=== PATIENT | male | born 1935 | race Caucasian/White ===

== ENCOUNTER 2017-05-22 09:16 | Day surgery (SDC) | payer BC ==
[~2017-05-22] VITALS: Ht 175.3 cm; Wt 90.7 kg
[~2017-05-22 09:16] MED LIST: NIFE60TA7 PO; PROP40TA7 PO
[2017-05-22 09:23] VITALS: BP_SYST 115
--- NOTE | 2017-05-22 09:28 | NUR ---
Patient to ER bed 8 to gown for evaluation. Side rails up. Report given by Iveth FARRELL.
--- NOTE | 2017-05-22 09:29 | NUR ---
Pt complains of hernia to left groin. Pt states "noticed bulging yesterday or the day before." Per pt, has nausea but denies vomiting. Pt denies fever or diarrhea. Pt states "not much pain after I pushed it back in." No other injuries/complaints per pt or noted.
--- NOTE | 2017-05-22 10:15 | NUR ---
ER at bedside examining patient.
--- NOTE | 2017-05-22 10:55 | NUR ---
Pt went to radiology in stable condition.
[2017-05-22 11:12] LABS: BASOPHILS # (AUTO) 0.1 K/uL (0.0-0.2); BASOPHILS % (AUTO) 0.6 % (0.0-2.0); EOSINOPHILS # (AUTO) 0.6 K/uL (0.0-0.4); EOSINOPHILS % (AUTO) 4.7 % (0.0-4.0); HEMATOCRIT 36.8 % (36-54); HEMOGLOBIN 12.3 g/dL (14.0-18.0); LYMPHOCYTES # (AUTO) 3.1 K/uL (1.0-5.5); LYMPHOCYTES % (AUTO) 24.4 % (20.5-51.5); MEAN CORPUSCULAR HEMOGLOBIN 27 pg (27-31); MEAN CORPUSCULAR HGB CONC 34 % (32-36); MEAN CORPUSCULAR VOLUME 81 fL (79.0-98.0); MONOCYTES % (AUTO) 8.1 % (1.7-9.3); NEUTROPHILS % (AUTO) 62.2 % (40.0-70.0); PLATELET COUNT (AUTO) 353 K/uL (130-430); RED BLOOD CELL COUNT(AUTO) 4.53 MIL/uL (4.2-6.2); RED CELL DISTRIBUTION WIDTH 15.1 % (9.0-15.0)
--- NOTE | 2017-05-22 11:18 | NUR ---
Pt vital signs are within range. Pt resting comfortably in bed, will continue to monitor.
[2017-05-22 11:20] LABS: WHITE BLOOD COUNT (AUTO) 12.8 K/uL (4.8-10.8)
[2017-05-22 11:27] LABS: ANION GAP 8 (5-15); CALCIUM 9.3 mg/dL (8.4-11.0); CHLORIDE 103 mmol/L (98-107); GLUCOSE 124 mg/dL (70-99); POTASSIUM 4.9 mmol/L (3.5-5.1); SODIUM SERUM 139 mmol/L (136-145); UREA NITROGEN, BLOOD 21 mg/dL (8-21)
[2017-05-22 11:33] LABS: ALANINE AMINOTRANSFERASE 18 U/L (12-78); ALBUMIN 3.4 g/dL (3.4-4.8); ASPARTATE AMINOTRANSFERASE 13 U/L (10-37); LIPASE 106 U/L (73-393); TOTAL BILIRUBIN 0.6 mg/dL (0.0-1.0)
[2017-05-22] MEDS ORDERED: NIFE-2 PO (12:13)
[2017-05-22] MEDS ORDERED: NAPR-688 PO (12:13)
[2017-05-22] MEDS ORDERED: PROP60CA6 PO (12:13)
[2017-05-22] MEDS ORDERED: SIMV40TA2 PO (12:13)
--- NOTE | 2017-05-22 12:47 | NUR ---
Pt ambulated to restroom with no difficulty, will continue to monitor.
--- NOTE | 2017-05-22 13:00 | NUR ---
Dr Foster is at bedside examining pt, explaining that the pt will be having left inguinal hernia repair today, pt is accepting and understands what will be happening. Daughter is at bedside.
[2017-05-22] MEDS ORDERED: SEVOFLURANE 15 MIN GAS INH ONE (13:25)
[2017-05-22] MEDS ORDERED: fentaNYL CITRATE 250 MCG/5 ML AMP IV ONE (13:25)
[2017-05-22] MEDS ORDERED: MIDAZOLAM HCL 5 MG/5 ML VIAL IVP ONE (13:25)
[2017-05-22] MEDS ORDERED: BACITRACIN ZINC 15 GM TOPICAL OINTMENT TP ONE (13:25)
[2017-05-22] MEDS ORDERED: METOCLOPRAMIDE HCL 10 MG/2 ML VIAL IVP ONE (13:25)
[2017-05-22] MEDS ORDERED: PROPOFOL 200MG/ 20ML VIAL (DIPRIVAN) IV ONE (13:25)
[2017-05-22] MEDS ORDERED: ROCURONIUM BROMIDE 10 MG/ML (ZEMURON) IV ONE (13:25)
[2017-05-22] MEDS ORDERED: BUPIVACAINE /DEX PF 0.75% SPINAL 2 ML AMP INJ ONE (13:25)
[2017-05-22] MEDS ORDERED: GLYCOPYRROLATE 0.2 MG/ML VIAL IJ ONE (13:25)
[2017-05-22] MEDS ORDERED: DEXAMETHASONE SOD PHOSPHATE 4 MG/ML VIAL IVP ONE (13:25)
[2017-05-22] MEDS ORDERED: CEFAZOLIN 2 GM IVPB PREMIX 50 ML IV ONE (13:25)
[2017-05-22] MEDS ORDERED: LR 1,000 ML IV.SOLN IV ONE (13:25)
--- NOTE | 2017-05-22 13:35 | NUR ---
Patient will be admitted to care of Dr. Foster. Admitted to OR unit. Will go to room OR. Belongings list completed. Summary report printed. Report will be given at bedside.
[2017-05-22] MEDS ORDERED: POLYMYXIN 500,000/BACIT.10,000 UNITS in NS IRR 1 L IR ONE ×2 (13:44→15:03)
[2017-05-22] MEDS ORDERED: LR 1,000 ML IV ONE (15:16)
[2017-05-22] MEDS ORDERED: D5/0.45 NS 1,000 ML IV SCH (15:16)
[2017-05-22] MEDS ORDERED: fentaNYL CITRATE/PF 100 MCG/2 ML AMP IVP PRN (15:30)
[2017-05-22] MEDS ORDERED: DIPHENHYDRAMINE INJ 50 MG/ML VIAL IVP PRN (15:30)
[2017-05-22] MEDS ORDERED: NALOXONE HCL 0.4 MG/ML AMP (NARCAN) IVP PRN (15:30)
[2017-05-22] MEDS ORDERED: ePHEDrine sulfate 50 MG/ML VIAL IVP PRN (15:30)
[2017-05-22] MEDS ORDERED: NALBUPHINE HCL 10 MG/ML AMP IVP PRN (15:30)
[2017-05-22] MEDS ORDERED: HYDROmorphone 1 MG INJ. 1 MG/ML AMPUL IVP PRN (15:30)
[2017-05-22] MEDS ORDERED: ONDANSETRON HCL 4 MG/2 ML VIAL IVP PRN ×2 (15:30)
[2017-05-22] MEDS ORDERED: HYDROcodone/ACETAMIN 5-325 MG TAB (NORCO/ VICODIN) PO PRN ×2 (15:30)
[2017-05-22 16:10] LABS: INR 1.1 (0.80-1.20); PROTHROMBIN TIME 10.8 SECS (9.5-12.5)
[2017-05-22] MEDS ORDERED: fentaNYL CITRATE/PF 100 MCG/2 ML AMP ONE (16:18)
--- NOTE | 2017-05-22 16:35 | NUR ---
TO ROOM 108-A. RECEIVED PT FROM RECOVERY ROOM, HE IS AWAKE AND ALERT, S/P INGUINAL HERNIA REPAIR, SCROTAL SUPPORT IN USE, PAIN SCALE 2-3 OUT OF 10 SCALE, BLOOD PRESSURE 133/80 O2 SAT 92% ON ROOM AIR, IVF INFUSING INTO RIGHT A/C, ORIENTED TO SURROUNDING, DAUGHTER ARRIVED AND UPDATED ON HIS STATUS.
--- NOTE | 2017-05-22 17:30 | NUR ---
NURSING. ENCOURAGED PT TO DO DEEP BREATHING AND LIGHT COUGHING. ABLE TO TOLERATE LUNG EXERCISES.
--- NOTE | 2017-05-22 17:50 | NUR ---
Sandra PT PROVIDED WITH A URINAL, ASSISTANCE REQUIRED, VOIDED ABOUT 200 ML CLEAR URINE.
--- NOTE | 2017-05-22 18:24 | NUR ---
PAIN. PT EXPRESSED DISCOMFORT TO INCISION, MEDICATED WITH 1 TABLET VICODIN ORDERED.
[2017-05-22 20:05] VITALS: BP_SYST 141
== END 2017-05-22 20:35 | disposition home or self-care (01) ==
LOC: SED 09:16 → SMU 13:44 → SDS 13:44
PROVIDERS: ATTEND Colon & Rectal Surgery
DX: K40.30 Unilateral inguinal hernia, with obstruction, without gangrene, not specified as recurrent (principal); I10 Essential (primary) hypertension; E78.5 Hyperlipidemia, unspecified; Z79.899 Other long term (current) drug therapy; Z87.891 Personal history of nicotine dependence
CPT/HCPCS: 36415; 49505; 71010; 74176; 80053; 83690; 85025; 85610; 85730; 87070 ×2; 87075; 93005; C1781; J3010; 88305; J0690; J1100; J2250; J2704; J2765; J3490; J7120

== ENCOUNTER 2020-06-04 01:34 | Emergency (ER) | payer BC ==
[~2020-06-04] VITALS: Ht 177.8 cm; Wt 92.1 kg
[2020-06-04 01:34] VITALS: BP_SYST 146
[~2020-06-04 01:34] MED LIST changes: +AMLO5TAB4 PO; +AMOX500C2 PO; +NAPR-688 PO; +NIFE-55 PO; -NIFE60TA7 PO; -PROP40TA7 PO; +PROP60CA40 PO
--- NOTE | 2020-06-04 01:40 | NUR ---
Placed in room 4. Placed on monitor and storage bin tender, blood pressure machine and pulse oximeter. To gown for exam. Side rails up.
--- NOTE | 2020-06-04 01:55 | NUR ---
PORTABLE X-RAY AT THE BEDSIDE
[2020-06-04] MEDS ORDERED: MAG HYDROX/AL HYDROX/SIMETH 30 ML, DICYCLOMINE HCL 20 MG, LIDOCAINE VISCOUS 2% 15ML (PO... PO ONE ×3 (02:00)
--- NOTE | 2020-06-04 02:00 | NUR ---
PT BIB [facility] FROM HOME WITH C/O EPIGASTRIC PAIN RADIATING TO HIS CHEST STARTING AT 2200. REPORTS HAVING [employer] FOR DINNER. ALSO HAS SOME N/V, VOMITTED X1 PRIOR TO ARRIVAL. AAOX4, V/S STABLE
--- NOTE | 2020-06-04 02:03 | NUR ---
PT MEDICATED WITH GI COCTAIL PER MD ORDERS, PT TOLERATED WELL
--- NOTE | 2020-06-04 02:10 | NUR ---
ER DR. MARIN AT THE BEDSIDE EVALUATING PT
--- NOTE | 2020-06-04 02:27 | NUR ---
Patient transported to radiology via WC, accompanied by STAFF
[2020-06-04] MEDS ORDERED: MORPHINE 4 MG/ML INJ. SYRINGE IVP ONE (02:45)
[2020-06-04 02:46] LABS: BASOPHILS # (AUTO) 0.1 K/uL (0.0-0.2); BASOPHILS % (AUTO) 0.8 % (0.0-2.0); EOSINOPHILS # (AUTO) 0.3 K/uL (0.0-0.4); EOSINOPHILS % (AUTO) 2.4 % (0.0-4.0); HEMOGLOBIN 12.6 g/dL (14.0-18.0); LYMPHOCYTES # (AUTO) 2.3 K/uL (1.0-5.5); LYMPHOCYTES % (AUTO) 20.3 % (20.5-51.5); MEAN CORPUSCULAR HEMOGLOBIN 27 pg (27-31); MEAN CORPUSCULAR HGB CONC 32 % (32-36); MEAN CORPUSCULAR VOLUME 85 fL (79.0-98.0); MONOCYTES # (AUTO) 0.8 K/uL (0.0-1.0); MONOCYTES % (AUTO) 7.5 % (1.7-9.3); NEUTROPHILS # (AUTO) 7.7 K/uL (1.8-7.7); PLATELET COUNT (AUTO) 275 K/uL (130-430); RED BLOOD CELL COUNT(AUTO) 4.69 MIL/uL (4.2-6.2); RED CELL DISTRIBUTION WIDTH 15.1 % (9.0-15.0); WHITE BLOOD COUNT (AUTO) 11.2 K/uL (4.8-10.8)
[2020-06-04 02:57] LABS: ANION GAP 8 (5-15); CALCIUM 8.6 mg/dL (8.4-11.0); CHLORIDE 103 mmol/L (98-107); CREATININE 1.74 mg/dL (0.55-1.30); GLUCOSE 223 mg/dL (70-99); POTASSIUM 3.9 mmol/L (3.5-5.1); SODIUM SERUM 138 mmol/L (136-145); UREA NITROGEN, BLOOD 23 mg/dL (8-21)
[2020-06-04] MEDS ORDERED: ONDANSETRON HCL 4 MG/2 ML VIAL IVP ONE (03:00)
[2020-06-04 03:03] LABS: ALANINE AMINOTRANSFERASE 27 U/L (12-78); ASPARTATE AMINOTRANSFERASE 20 U/L (10-37); TOTAL BILIRUBIN 0.5 mg/dL (0.0-1.0)
[2020-06-04 03:11] LABS: ALBUMIN 3.7 g/dL (3.4-4.8); LIPASE 105 U/L (73-393)
[2020-06-04] MEDS ORDERED: ONDANSETRON HCL 4 MG/2 ML VIAL ONE (03:14)
[2020-06-04 04:11] VITALS: BP_SYST 115
--- NOTE | 2020-06-04 04:11 | NUR ---
Patient given written and verbal discharge instructions and verbalizes understanding. ER MD discussed with patient the results and treatment provided. Patient in stable condition. ID arm band removed. IV catheter removed intact and dressing applied, no active bleeding. Rx of Zofran 8 mg tab and Prilosec [address] cap given. Patient educated on pain management and to follow up with PMD. Pain Scale 0/10 Opportunity for questions provided and answered.
== END 2020-06-04 04:11 | disposition home or self-care (01) ==
LOC: SED 01:34
DX: R10.13 Epigastric pain (principal); R11.0 Nausea; I48.91 Unspecified atrial fibrillation; I10 Essential (primary) hypertension; Z79.899 Other long term (current) drug therapy
CPT/HCPCS: 36415; 71045; 74176; 80053; 82550; 83690; 83880; 84484; 85025; 93005; 96374; 96375; 99285; J2001; J2270; J2405

== ENCOUNTER 2020-08-17 11:24 | Emergency (ER) | payer BC, SELFPAY ==
[~2020-08-17] VITALS: Ht 170.2 cm; Wt 83.9 kg
[2020-08-17 11:38] VITALS: BP_SYST 148
[2020-08-17 12:07] LABS: BASOPHILS # (AUTO) 0.1 K/uL (0.0-0.2); BASOPHILS % (AUTO) 1.3 % (0.0-2.0); EOSINOPHILS # (AUTO) 0.2 K/uL (0.0-0.4); EOSINOPHILS % (AUTO) 1.9 % (0.0-4.0); HEMOGLOBIN 12.5 g/dL (14.0-18.0); LYMPHOCYTES % (AUTO) 22.1 % (20.5-51.5); MEAN CORPUSCULAR HEMOGLOBIN 28 pg (27-31); MEAN CORPUSCULAR HGB CONC 33 % (32-36); MEAN CORPUSCULAR VOLUME 84 fL (79.0-98.0); MONOCYTES # (AUTO) 0.6 K/uL (0.0-1.0); MONOCYTES % (AUTO) 7.2 % (1.7-9.3); NEUTROPHILS % (AUTO) 67.5 % (40.0-70.0); PLATELET COUNT (AUTO) 372 K/uL (130-430); RED BLOOD CELL COUNT(AUTO) 4.56 MIL/uL (4.2-6.2); RED CELL DISTRIBUTION WIDTH 14.8 % (9.0-15.0); WHITE BLOOD COUNT (AUTO) 8.9 K/uL (4.8-10.8)
[2020-08-17 12:19] LABS: ANION GAP 9 (5-15); CALCIUM 9.3 mg/dL (8.4-11.0); CHLORIDE 102 mmol/L (98-107); CREATININE 1.56 mg/dL (0.55-1.30); GLUCOSE 128 mg/dL (70-99); POTASSIUM 5.3 mmol/L (3.5-5.1); SODIUM SERUM 137 mmol/L (136-145); UREA NITROGEN, BLOOD 24 mg/dL (8-21)
[2020-08-17 12:28] LABS: ALANINE AMINOTRANSFERASE 26 U/L (12-78); ALBUMIN 3.3 g/dL (3.4-4.8); ASPARTATE AMINOTRANSFERASE 15 U/L (10-37); TOTAL BILIRUBIN 0.8 mg/dL (0.0-1.0)
[2020-08-17] MEDS ORDERED: ALBUTEROL SULFATE 0.083% 2.5 MG/3 ML VIAL.NEB INH ONE (14:45)
[2020-08-17 15:10] VITALS: BP_SYST 139
== END 2020-08-17 15:10 | disposition home or self-care (01) ==
LOC: SED 11:24
DX: R06.02 Shortness of breath (principal); I10 Essential (primary) hypertension; I48.91 Unspecified atrial fibrillation; Z79.899 Other long term (current) drug therapy; Z20.828 Contact with and (suspected) exposure to other viral communicable diseases
CPT/HCPCS: 36415; 36600; 71045; 80053; 84484; 85025; 87426; 93005; 94640; 99285; J7613